=== PATIENT | male | born 1940 | race Caucasian/White ===

== ENCOUNTER 2021-03-11 22:57 | Emergency (ER) | payer MEDICARE, BC | END 2021-03-12 00:30 | disposition home or self-care (01) | LOC: ERS 22:57 | DX: J06.9 Acute upper respiratory infection, unspecified (principal); J30.9 Allergic rhinitis, unspecified; I10 Essential (primary) hypertension; E11.9 Type 2 diabetes mellitus without complications; E78.00 Pure hypercholesterolemia, unspecified; E78.5 Hyperlipidemia, unspecified; Z79.84 Long term (current) use of oral hypoglycemic drugs; Z79.01 Long term (current) use of anticoagulants; Z79.899 Other long term (current) drug therapy | CPT/HCPCS: 71046; 99283 ==

== ENCOUNTER 2022-07-03 17:54 | Emergency (ER) | payer MEDICARE ==
[2022-07-03] MEDS ORDERED: Calcium Chloride 1 GM/10 ML Abboject SYRINGE ONE (17:57)
[2022-07-03] MEDS ORDERED: EPINEPHrine 1 MG/10 ML Abboject SYRINGE ONE ×2 (17:57→18:21)
[2022-07-03] MEDS ORDERED: Sodium Bicarb 50 MEQ/50 ML Abboject 8.4% SYRINGE ONE (17:57)
[2022-07-03] MEDS ORDERED: Tenecteplase 50 MG ONE (17:57)
[2022-07-03] MEDS ORDERED: Dextrose 50% Abboject 50 ML SYRINGE ONE (18:26)
== END 2022-07-03 18:42 | disposition expired ==
LOC: ERS 17:54
DX: I46.9 Cardiac arrest, cause unspecified (principal); E11.9 Type 2 diabetes mellitus without complications; E78.00 Pure hypercholesterolemia, unspecified; I10 Essential (primary) hypertension; F17.220 Nicotine dependence, chewing tobacco, uncomplicated
CPT/HCPCS: 31500; 37195; 82962; 92950; 93005; 99285; J3101; 36416; J0171; J7999